=== PATIENT | female | born 1960 | race Caucasian/White ===

== ENCOUNTER 2022-05-24 20:01 | Emergency (ER) | payer BC, OTHER ==
[~2022-05-24] VITALS: Ht 167.6 cm; Wt 107.0 kg
[~2022-05-24 20:01] MED LIST: SULF-35 PO
[2022-05-24 21:09] LABS: Basophils # (auto) 0.1 10 ^3/uL (0-0.2); Eosinophils # (auto) 0.2 10 ^3/uL (0-0.8); Hemoglobin 8.7 g/dL (12.2-16.2); Lymphocytes # (auto) 3.1 10 ^3/uL (0.4-5.4); Mean Corpuscular Hemoglobin 18.2 pg (28.0-32.0); Monocytes # (auto) 0.6 10 ^3/uL (0-1.3); Red Blood Cells 4.79 10^6/uL (4.0-5.20); White Blood Cell 7.7 10^3/uL (4.4-10.8)
[2022-05-24 21:10] LABS: Eosinophils % (auto) 2.9 % (0.0-7.0); Hematocrit 28.8 % (36.0-46.0); Lymphocytes % (auto) 40.7 % (10.0-50.0); Mean Corpuscular Hgb Conc. 30.3 g/dL (32.0-36.0); Mean Corpuscular Volume 60.2 fL (80.0-100.0); Monocytes % (auto) 7.6 % (0.0-12.0); Neutrophils # (auto) 3.7 10 ^3/uL (1.6-8.6); Neutrophils % (auto) 47.8 % (37.0-80.0); Nucleated Red Blood Cells % 0.2 %; Red Cell Distribution Width 19.7 % (11.8-14.3)
[2022-05-24 21:33] LABS: INR 0.92 (0.9-1.15); Partial Thromboplastin Time 26.6 sec (24.6-33.4)
[2022-05-24 21:36] LABS: Albumin 3.5 g/dL (3.4-5.0); BUN/Creatinine Ratio 73.8; Calcium 9.1 mg/dL (8.5-10.1); Potassium 3.9 mmol/L (3.5-5.1)
[2022-05-24 21:37] LABS: Bilirubin, Total 0.3 mg/dL (0.2-1.0); Total Protein 6.8 g/dL (6.4-8.2)
[2022-05-24 22:40] VITALS: BP 176/65
[2022-05-24] MEDS ORDERED: HYDR25TA4 PO (23:08)
== END 2022-05-25 00:50 | disposition home or self-care (01) ==
LOC: ER 20:01
DX: R00.2 Palpitations (principal); R42 Dizziness and giddiness; I10 Essential (primary) hypertension
CPT/HCPCS: 36415; 71045; 80053; 83735; 83880; 84484; 85025; 85610; 85730; 93005

== ENCOUNTER 2023-02-23 00:36 | Emergency (ER) | payer OTHER ==
[~2023-02-23] VITALS: Ht 167.6 cm; Wt 90.9 kg
[2023-02-23 02:18] LABS: Alanine Aminotransferase 21 U/L (7-40); Albumin 4.6 g/dL (3.2-4.8); Alkaline Phosphatase 103 U/L (46-116); Anion Gap 7 (5-15); Aspartate Aminotransferase 32 U/L (13-40); Basophils # (auto) 0 10 ^3/uL (0-0.2); Basophils % (auto) 0.5 % (0.0-2.0); Bilirubin, Total 0.4 mg/dL (0.2-1.0); Blood Urea Nitrogen 16 mg/dL (9-23); Calcium 9.9 mg/dL (8.7-10.4); Carbon Dioxide 28 mmol/L (20-30); Chloride 104 mmol/L (98-107); Eosinophils # (auto) 0.2 10 ^3/uL (0-0.8); Eosinophils % (auto) 2.1 % (0.0-7.0); Glucose 101 mg/dL (74-106); Hematocrit 43.8 % (36.0-46.0); Hemoglobin 14.4 g/dL (12.2-16.2); Lipase 43 U/L (12-53); Lymphocytes # (auto) 2.1 10 ^3/uL (0.4-5.4); Lymphocytes % (auto) 22.6 % (10.0-50.0); Magnesium 1.9 mg/dL (1.6-2.6); Mean Corpuscular Hemoglobin 29.4 pg (28.0-32.0); Monocytes # (auto) 0.5 10 ^3/uL (0-1.3); Monocytes % (auto) 4.8 % (0.0-12.0); Neutrophils # (auto) 6.5 10 ^3/uL (1.6-8.6); Potassium 3.8 mmol/L (3.5-5.1); Red Blood Cells 4.92 10^6/uL (4.0-5.20); Red Cell Distribution Width 15.6 % (11.8-14.3); Sodium 139 mmol/L (136-145); Total Protein 6.8 g/dL (5.7-8.2); White Blood Cell 9.3 10^3/uL (4.4-10.8)
[2023-02-23 04:23] VITALS: PULSE 50; RESP 18; O2SAT 95
[2023-02-23] MEDS ORDERED: ONDANSETRON HCL 4 MG/2 ML VIAL IV ONE (04:45)
[2023-02-23] MEDS ORDERED: ONDANSETRON ODT 4 MG TAB PO ONE (05:15)
[2023-02-23 07:00] VITALS: BP 131/65; TEMP 98
[2023-02-23 07:35] VITALS: PULSE 44; RESP 13; O2SAT 96
[2023-02-23 08:05] VITALS: PULSE 61
[2023-02-23 08:16] LABS: Urine Bacteria FEW /hpf (None Seen); Urine Blood Negative /uL (Negative); Urine Clarity Clear (Clear); Urine Color STRAW (Yellow); Urine Hyaline Cast MANY /lpf (0 - 2); Urine Protein, UAD Negative (Negative); Urine Specific Gravity 1.014 (1.001-1.035); Urine Urobilinogen Normal (Negative); Urine WBC <1 /hpf (0 - 5); Urine pH 5.5 (5.0-8.0)
[2023-02-23] MEDS ORDERED: METO-281 PO (08:57)
[2023-02-23] MEDS ORDERED: PANT1INJ3 IV (08:57)
== END 2023-02-23 09:16 | disposition home or self-care (01) ==
LOC: EDUNIT# 00:36 → ER 00:36 → EDBD 00:36 → ER 09:07
DX: N83.201 Unspecified ovarian cyst, right side (principal); I48.91 Unspecified atrial fibrillation; R10.13 Epigastric pain; I10 Essential (primary) hypertension; Z98.84 Bariatric surgery status; Z86.2 Personal history of diseases of the blood and blood-forming organs and certain disorders involving the immune mechanism; Z98.890 Other specified postprocedural states; Z87.891 Personal history of nicotine dependence; Z79.899 Other long term (current) drug therapy
CPT/HCPCS: 36415; 74176; 80053; 81001; 83690; 83735; 85025; 93005; 99285; Q0162